=== PATIENT | female | born 1975 | race Caucasian/White ===

== ENCOUNTER → 2016-12-31 | Outpatient (CLI) | payer BC ==
[2016-12-31 14:18] LABS: Basophils % (A) 1 %; CH 29.3; CHCM 33.5; Eosinophils # (A) 0.2 k/uL (0-0.7); Eosinophils % (A) 3 %; HCT 43.1 % (34.0-46.0); HDW 2.69; HGB 14.2 gm/dL (11.4-16.0); Luc # (Auto) 0.14; Luc % (Auto) 2; Lymphocytes # (A) 1.9 k/uL (1.0-4.8); Lymphocytes % (A) 32 %; MCH 29.1 pg (25.0-35.0); MCV 87.9 fL (80.0-100.0); Mean Platelet Volume 7.4; Monocytes # (A) 0.5 k/uL (0-1.0); Monocytes % (A) 8 %; Neutrophils # (A) 3.2 k/uL (1.3-7.7); Neutrophils % (A) 54 %; RDW 12.8 % (11.5-15.5); WBC 5.9 k/uL (3.8-10.6); WBC (Perox) 6.13
== END ==
LOC: LABWHC1 13:49
PROVIDERS: ATTEND Obstetrics & Gynecology
DX: Z01.812 Encounter for preprocedural laboratory examination (principal); E56.9 Vitamin deficiency, unspecified; D06.9 Carcinoma in situ of cervix, unspecified
CPT/HCPCS: 36415; 82306; 82310; 85025

== ENCOUNTER 2017-01-13 07:34 | Day surgery (SDC) | payer BC ==
--- NOTE | 2017-01-08 15:13 | HP ---
DATE OF ADMISSION: 01/13/2017 HISTORY OF PRESENT ILLNESS: Margarita is a 41-year-old 3, para 2-0-1-2 who presented for an annual examination earlier this year at which time she had an abnormal Pap smear leading to colposcopy. She underwent colposcopically directed biopsies which demonstrated CIN2 and subsequently underwent a LEEP procedure approximately 4 weeks ago. At that time, the endocervical or deep margin was found to be positive for CIN3. She has no other ongoing problems or concerns, but cold knife conization is indicated for removal of the deep margins. PAST MEDICAL HISTORY: Significant for history of antiphospholipid syndrome. She also is hypothyroid. SURGICAL HISTORY: Significant only for a partial thyroidectomy in 2000 and the previously mentioned LEEP procedure. OBSTETRICAL HISTORY: 3, para 2-0-1-2 with 2 term vaginal deliveries without complications. Method of contraception has been Depo-Provera to this point, but she is intending to change methods. Gynecologic history is unremarkable with no history of any infections to include STDs. Family history is noncontributory. SOCIAL HISTORY: The patient is and employed at [employer]. She is a historical smoker but quit in 2007. She denies any other social concerns. Current medications include: 1. Levoxyl daily. 2. Allergy medication p.r.n. ALLERGIES: No known drug allergies, though she does have seasonal allergies. Review of systems is confined to history of present illness. PHYSICAL EXAMINATION: Vital signs are stable. The patient is afebrile. In general, this is a well-developed, well-nourished, white female in no acute distress. Her heart has a regular rhythm and rate without murmur. Her lungs are clear to auscultation bilaterally in all mahmood. Her abdomen is nondistended, has normoactive bowel sounds, soft, nontender, and without any palpable masses, hepatosplenomegaly or hernias. Her extremities are without any cyanosis, clubbing or edema and are nontender to palpation bilaterally. Pelvic examination demonstrates normal external genitalia and BUS with normal vaginal mucosa and cervix with a well-healing LEEP bed. There is no cervical motion tenderness. The uterus is approximately 5 weeks in size, midplane, mobile, nontender, and normal in shape. The adnexa are normal and nontender without mass bilaterally. ASSESSMENT AND PLAN: Endocervical CIN3: We discussed options for treatment and I feel that the only logical treatment is further excision to achieve negative margins. The surgery that is indicated is cold knife conization. The risks and complications of these procedures were thoroughly discussed including the risks for bleeding, bleeding requiring transfusion, infection, and injury to local structures which is primarily the cervix though she has no further interested in childbearing. She has understood and agreed to proceed. We are scheduled for cold knife conization of the cervix on the morning of January 13, 2017 for the diagnoses as outlined above.
[2017-01-09 13:50] VITALS: BMI 33.6
[~2017-01-13 07:34] MED LIST: DEXAMETHASONE SOD PHOSPHATE 10 MG/ML 1 ML VIAL IV ONE; HYDROmorphone 1 MG/ML 1 ML SYRINGE IVP PRN; LACTATED RINGERS 1,000 ML IV SCH; MIDAZOLAM 2 MG/2 ML VIAL IV PRN; ONDANSETRON 4 MG/2 ML VIAL IVP ONE; Pre Op ABX Message 1 EACH MISC MISCELLANE ONE; SCOPOLAMINE 1.5MG/72HR PATCH TRANSDERM ONE
[2017-01-13] MEDS ORDERED: LIDOCAINE 1% 20 ML VIAL (10MG/ML) FOR IV START INTRADERMA ONE (07:55)
[2017-01-13] MEDS ORDERED: IODINE/POTASS IOD (LUGOLS) BTL TOPICAL ONE ×2 (08:28→08:52)
[2017-01-13] MEDS ORDERED: FERRIC SUBSULFATE (MONSELS) JAR TOPICAL ONE ×2 (08:33→09:03)
[2017-01-13] MEDS ORDERED: fentaNYL (PF) 50 MCG/ML 2 ML AMP ONE (08:34)
[2017-01-13] MEDS ORDERED: SUCCINYLCHOLINE CHLORIDE 100 MG/5 ML SYR IV ONE (08:34)
[2017-01-13] MEDS ORDERED: PROPOFOL 10 MG/ML 20 ML VIAL IV ONE (08:34)
[2017-01-13] MEDS ORDERED: LIDOCAINE 1% INJ 10MG/ML (20 ML MDV) ONE (08:34)
[2017-01-13] MEDS ORDERED: MIDAZOLAM 2 MG/2 ML VIAL ONE (08:34)
[2017-01-13] MEDS ORDERED: KETOROLAC 30 MG/ML 1 ML VIAL IVP PRN (08:38)
[2017-01-13] MEDS ORDERED: ONDANSETRON 4 MG/2 ML VIAL IVP PRN (08:38)
[2017-01-13] MEDS ORDERED: METOCLOPRAMIDE 5 MG/ML 2 ML VIAL IVP PRN (08:38)
[2017-01-13] MEDS ORDERED: SIMETHICONE 80 MG CHEWABLE PO PRN (08:38)
[2017-01-13] MEDS ORDERED: IBUPROFEN 600 MG TAB PO PRN (08:38)
[2017-01-13] MEDS ORDERED: diphenhydrAMINE 50 MG/ML 1 ML VIAL IVP PRN (08:38)
[2017-01-13] MEDS ORDERED: Acetaminophen-Codeine 300-30mg TAB PO PRN ×2 (08:38)
[2017-01-13] MEDS ORDERED: LACTATED RINGERS 1,000 ML IV SCH (08:45)
--- NOTE | 2017-01-13 09:18 | P.OP ---
Date of Procedure: 01/13/17 Preoperative Diagnosis: Endocervical ISABEL 3 Postoperative Diagnosis: Same Procedure(s) Performed: Cold knife cervical conization Anesthesia: JACKIE Surgeon: Jordan Benton Estimated Blood Loss (ml): 30 IV fluids (ml): 400 Urine output (ml): 10 Pathology: other (Cervical cone) Condition: stable Disposition: PACU Operative Findings: Or staining with Lugol strong iodine, there was minimal nonstaining cervix visible. The cone itself was approximately 2-1/2 cm deep bite 2 cm wide and appeared to be intact throughout with the endocervix in the center. Description of Procedure: The patient was prepped and draped in usual fashion after general endotracheal anesthesia was administered by the anesthesiologist. A weighted speculum was placed in the bladder drained of approximately 10 mL of clear yoko urine. The anterior lip of the cervix was grasped with an Allis clamp and cervical stay sutures were placed at the cervicovaginal junction from 10:00 to 8:00 and 2:00 to 4:00 and firmly tied down using 0 Vicryl. The cervix was stained with Lugol strong iodine with minimal nonstaining areas seen. A uterine sound was placed through the cervix to the fundus of the uterus allowing guidance of the scalpel. 11 blade scalpel was utilized to make a cone to a depth of approximately 2 and half centimeters after which time the sound was removed and the cone grasped with the Allis clamp. It was then divided at its base and sent for pathological diagnoses. The bed was cauterized with the ball cautery as well as Monsel's solution. Ultimately, adequate hemostasis was accomplished. The stay sutures were left in place but cut short. Estimated blood loss for the case was approximately 30 mL. There were no complications. All sponge, instrument, and needle counts were correct. The patient tolerated the procedure well and proceeded to the recovery room in stable condition.
[2017-01-13 09:40] VITALS: TEMP 97
[2017-01-13 10:51] VITALS: BP 114/77; PULSE 76; RESP 18
[2017-01-13] MEDS ORDERED: IV FLUID CONTINUATION 1,000 ML IV ONE (11:11)
== END 2017-01-13 11:21 | disposition home or self-care (01) ==
LOC: OR 07:34
PROVIDERS: ATTEND Obstetrics & Gynecology
DX: D06.9 Carcinoma in situ of cervix, unspecified (principal); N72 Inflammatory disease of cervix uteri; E89.0 Postprocedural hypothyroidism; Z87.891 Personal history of nicotine dependence; Z79.899 Other long term (current) drug therapy
CPT/HCPCS: 81025; 88307; 57520; J2250; J1100; J2405; J2001; J3010; J1885; J0330; J2704

== ENCOUNTER → 2017-02-10 | Outpatient (CLI) | payer BC ==
--- NOTE | 2017-02-10 14:28 | MM ---
Reason for exam: follow-up at short interval from prior study. Last mammogram was performed 6 months ago. History: Took hormonal contraceptives beginning at age 15. Physical Findings: Nurse did not find any significant physical abnormalities on exam. MG Diagnostic Mammo LT w CAD CC and MLO view(s) were taken of the left breast. Prior study comparison: August 21, 2016, left breast MG work up mamm w CAD LT. August 15, 2016, bilateral MG screening mammo w CAD. There are scattered fibroglandular densities. There is no discrete abnormality. These results were verbally communicated with the patient and result sheet given to the patient on 02/10/17. ASSESSMENT: Negative, BI-RAD 1 RECOMMENDATION: Routine screening mammogram of both breasts in 6 months. Back on schedule.
== END | disposition home or self-care (01) ==
LOC: RADMAMWWP 13:34
PROVIDERS: ATTEND Obstetrics & Gynecology
DX: R92.8 Other abnormal and inconclusive findings on diagnostic imaging of breast (principal)

== ENCOUNTER → 2017-06-04 | Outpatient (CLI) | payer BC ==
[2017-06-04 19:36] LABS: Basophils % (A) 1 %; CH 29.7; CHCM 33.7; Eosinophils # (A) 0.2 k/uL (0-0.7); Eosinophils % (A) 3 %; HCT 43.5 % (34.0-46.0); HDW 2.63; Luc # (Auto) 0.12; Luc % (Auto) 2; Lymphocytes # (A) 1.8 k/uL (1.0-4.8); Lymphocytes % (A) 30 %; MCH 28.5 pg (25.0-35.0); MCHC 32.2 g/dL (31.0-37.0); MCV 88.5 fL (80.0-100.0); Mean Platelet Volume 9.2; Monocytes # (A) 0.5 k/uL (0-1.0); Monocytes % (A) 8 %; Neutrophils # (A) 3.4 k/uL (1.3-7.7); Neutrophils % (A) 57 %; RBC 4.92 m/uL (3.80-5.40); RDW 13.7 % (11.5-15.5); WBC 5.9 k/uL (3.8-10.6); WBC (Perox) 5.68
[2017-06-04 19:57] LABS: ALT 33 U/L (9-52); AST 15 U/L (14-36); Alkaline Phosphatase 72 U/L (38-126); Anion Gap 10 mmol/L; Blood Urea Nitrogen 11 mg/dL (7-17); Carbon Dioxide 25 mmol/L (22-30); Chloride 104 mmol/L (98-107); Cholesterol 171 mg/dL (<200); Glucose 90 mg/dL (74-99); HDL Cholesterol 38 mg/dL (40-60); Non-African American GFR(MDRD) >60 (>60 ml/min/1.73 sqM); Potassium 4.7 mmol/L (3.5-5.1); Sodium 139 mmol/L (137-145); Total Bilirubin 0.4 mg/dL (0.2-1.3); Total Protein 6.4 g/dL (6.3-8.2)
== END ==
LOC: MMGSC 09:42
PROVIDERS: ATTEND Family Medicine
DX: E03.9 Hypothyroidism, unspecified (principal); E55.9 Vitamin D deficiency, unspecified
CPT/HCPCS: 36415; 80053; 80061; 82306; 84439; 84443; 85025

== ENCOUNTER → 2019-05-03 | Outpatient (CLI) | payer OTHER ==
--- NOTE | 2019-05-04 11:30 | MM ---
Reason for exam: screening (asymptomatic). Last mammogram was performed 1 year and 8 months ago. History: Took hormonal contraceptives beginning at age 15. MG Screening Mammo w CAD Bilateral CC and MLO view(s) were taken. Prior study comparison: August 27, 2017, left breast MG work up mamm w CAD LT. August 15, 2017, bilateral MG screening mammo w CAD. There are scattered fibroglandular densities. No suspicious abnormality. No significant new finding when compared with prior studies. ASSESSMENT: Negative, BI-RAD 1 RECOMMENDATION: Routine screening mammogram of both breasts in 1 year.
== END | disposition home or self-care (01) ==
LOC: RADMAMWWP 09:23
PROVIDERS: ATTEND Obstetrics & Gynecology
DX: Z12.31 Encounter for screening mammogram for malignant neoplasm of breast (principal)
CPT/HCPCS: 77067

== ENCOUNTER → 2020-08-11 | Outpatient (CLI) | payer OTHER ==
--- NOTE | 2020-08-14 08:55 | MM ---
Reason for exam: screening (asymptomatic). Last mammogram was performed 1 year and 3 months ago. History: Took hormonal contraceptives beginning at age 15. Physical Findings: A clinical breast exam by your physician is recommended on an annual basis and results should be correlated with mammographic findings. MG Screening Mammo w CAD Bilateral CC and MLO view(s) were taken. Prior study comparison: May 03, 2019, bilateral MG screening mammo w CAD. August 27, 2017, left breast MG work up mamm w CAD LT. There are scattered fibroglandular densities. Asymmetric breast tissue left breast, stable. There is no discrete abnormality. ASSESSMENT: Negative, BI-RAD 1 RECOMMENDATION: Routine screening mammogram of both breasts in 1 year.
== END | disposition home or self-care (01) ==
LOC: RADMAMWWP 07:30
PROVIDERS: ATTEND Obstetrics & Gynecology
DX: Z12.31 Encounter for screening mammogram for malignant neoplasm of breast (principal)
CPT/HCPCS: 77067

== ENCOUNTER → 2023-11-28 | Outpatient (CLI) | payer BC ==
--- NOTE | 2023-12-03 09:34 | MM ---
Reason for Exam: Screening (asymptomatic). Last mammogram was performed 3 year(s) and 3 month(s) ago. Patient History: Menarche at age 9. First Full-Term at age 24. Patient has history of breast feeding. Hormonal Contraceptives, from age 15 until age 40. Last menstrual period: 10/16/2023 Risk Values: Taylor 5 year model risk: 1.2%. NCI Lifetime model risk: 10.8%. Prior Study Comparison: 08/27/2017 Left Diagnostic Mammogram, [facility]. 05/03/2019 Bilateral Screening Mammogram, [facility]. 08/11/2020 Bilateral Screening Mammogram, [facility]. Tissue Density: The breasts are heterogeneously dense, which may obscure small masses. Findings: Analyzed By CAD. There is no suspicious group of microcalcifications or new suspicious mass in either breast. Overall Assessment: Benign, BI-RAD 2 Management: Screening Mammogram of both breasts in 1 year. . Patient should continue monthly self-breast exams. A clinical breast exam by your physician is recommended on an annual basis. This exam should not preclude additional follow-up of suspicious palpable abnormalities. Note on Taylor scores and lifetime risk: 1. A Taylor score greater than 3% is considered moderate risk. If this is the case, consider specialist referral to assess eligibility for a risk reducing agent. 2. If overall lifetime risk for the development of breast cancer is 20% or higher, the patient may qualify for future screening with alternating mammogram and breast MRI. Electronically signed and approved by: Tyron Valdez M.D. Radiologis
== END | disposition home or self-care (01) ==
LOC: RADMAMWWP 09:31
PROVIDERS: ATTEND Family Medicine
DX: Z12.31 Encounter for screening mammogram for malignant neoplasm of breast (principal)
CPT/HCPCS: 77067

== ENCOUNTER → 2025-01-19 | Outpatient (CLI) | payer BC ==
--- NOTE | 2025-01-20 07:11 | MM ---
Reason for Exam: Screening (asymptomatic). Last mammogram was performed 1 year(s) and 2 month(s) ago. Patient History: Menarche at age 9. First Full-Term at age 24. Patient has history of breast feeding. Hormonal Contraceptives, from age 15 until age 40. Last menstrual period: 11/18/2024 Risk Values: Taylor 5 year model risk: 1.2%. NCI Lifetime model risk: 10.6%. Prior Study Comparison: 05/03/2019 Bilateral Screening Mammogram, [facility]. 08/11/2020 Bilateral Screening Mammogram, [facility]. 11/28/2023 Bilateral MG screening mammo w CAD, [facility]. Tissue Density: There are scattered areas of fibroglandular density. Findings: Analyzed By CAD. There is no suspicious group of microcalcifications or new suspicious mass in either breast. Overall Assessment: Negative, BI-RAD 1 Management: Screening Mammogram of both breasts in 1 year. . Patient should continue monthly self-breast exams. A clinical breast exam by your physician is recommended on an annual basis. This exam should not preclude additional follow-up of suspicious palpable abnormalities. Note on Taylor scores and lifetime risk: 1. A Taylor score greater than 3% is considered moderate risk. If this is the case, consider specialist referral to assess eligibility for a risk reducing agent. 2. If overall lifetime risk for the development of breast cancer is 20% or higher, the patient may qualify for future screening with alternating mammogram and breast MRI. [facility], , 01/20/2025 7:07 AM. Electronically signed and approved by: Dani Gu M.D.
== END | disposition home or self-care (01) ==
LOC: RADMAMWWP 16:41
PROVIDERS: ATTEND Obstetrics & Gynecology
DX: Z12.31 Encounter for screening mammogram for malignant neoplasm of breast (principal); R92.323 Mammographic fibroglandular density, bilateral breasts; Z92.0 Personal history of contraception
CPT/HCPCS: 77067